=== PATIENT | female | born 1995 | race Two or more races ===

== ENCOUNTER 2024-07-25 11:51 | Emergency (ER) | payer OTHER ==
[~2024-07-25] VITALS: Ht 160 cm; Wt 59.9 kg
[2024-07-25] MEDS ORDERED: 0.9 % SODIUM CHLORIDE 1,000 ML IV STA (13:42)
[2024-07-25] MEDS ORDERED: ACETAMINOPHEN 325 MG TABLET PO STA (13:53)
[2024-07-25] MEDS ORDERED: ONDANSETRON HCL 2 MG/ML VIAL IV ONE (14:15)
[2024-07-25 14:31] LABS: HEMATOCRIT 46.3 % (36.0-45.00); MEAN CELL VOLUME 86.1 fL (80.00-100.00); MEAN CORPUSCULAR HEMOGLOBIN 29.7 pg (27.00-32.0); MEAN CORPUSCULAR HGB CONC 34.5 g/dl (32.0-36.0); PLATELET COUNT 261 K/uL (150-450); RED BLOOD COUNT 5.38 M/uL (4.00-6.00); RED CELL DISTRIBUTION WIDTH 13.6 % (11.5-14.5)
[2024-07-25 14:46] LABS: PH,URINE 5.5 (5.0-8.0); URINE APPEARANCE Clear; URINE BILIRRUBIN Negative (NEGATIVE); URINE BLOOD Negative; URINE COLOR Yellow; URINE GLUCOSE Negative (NEGATIVE); URINE LEUKOCYTE Negative; URINE NITRATE Negative; URINE PROTEIN 30 (NEGATIVE)
[2024-07-25 14:49] LABS: URINE BACTERIA 252.1 uL (0.0-1933); URINE EPITHELIAL CELLS 25.7 uL (0.0-38.8); URINE RBC 10.7 uL (0.0-20.8); URINE WBC 2.3 uL (0.0-23.2)
[2024-07-25 14:54] LABS: URINE KETONE >=160 (NEGATIVE)
[2024-07-25 15:18] LABS: ALBUMIN 4.4 gm/dL (3.4-5.0); BILIRUBIN TOTAL 0.39 mg/dL (0.3-1.2); CALCIUM 9.2 mg/dL (8.5-10.1); CREATININE SERUM 0.68 mg/dL (0.55-1.02); GFR 100.92; GLOBULINA 3.8 G/DL (2.4-3.5); POTASSIUM 4.07 mEq/L (3.5-5.1); TOTAL PROTEIN 8.2 gm/dL (6.4-8.2)
[2024-07-25] MEDS ORDERED: ONDANSETRON 4 MG TAB.RAPDIS PO ONE (17:00)
== END 2024-07-25 17:08 | disposition home or self-care (01) ==
LOC: ER 11:53
PROVIDERS: Emergency Medicine
DX: B34.9 Viral infection, unspecified (principal); Z20.822 Contact with and (suspected) exposure to COVID-19; Z88.6 Allergy status to analgesic agent